=== PATIENT | female | born 1945 | race Caucasian/White ===

== ENCOUNTER → 2024-10-06 13:19 | Outpatient (REF) | payer MEDICARE, SELFPAY ==
[2024-10-06 14:17] LABS: % Basophils 0.7 % (0-2); % Immature Granulocytes 0.4 % (0-0.5); % Lymphocytes 31.7 % (20.5-51.1); % Monocytes 9.9 % (1.7-9.3); % Neutrophils 55.3 % (42.2-75.2); Absolute Eosinophils 0.1 10^3/uL (0-0.7); Absolute Lymphocytes 1.8 10^3/uL (1.2-3.4); Absolute Monocytes 0.6 10^3/uL (0.1-0.6); Absolute Neutrophils 3.1 10^3/uL (1.4-6.5); Hematocrit 36.8 % (37.0-47.0); Hemoglobin 12.2 g/dL (12.0-16.0); Mean Corp Hgb Conc. 33.2 g/dL (33.0-37.0); Mean Corpuscular Volume 93.4 fL (81.0-99.0); Mean Platelet Volume 9.8 fL (7.4-10.4); Nucleated Red Blood Cells % 0 %; Platelet Count 242 10^3/uL (130-400); Red Blood Cell Count 3.94 10^6/uL (4.20-5.40); Red Cell Dist. Width 12.8 % (11.5-14.5); White Blood Cell Count 5.6 10^3/uL (4.8-10.8)
[2024-10-06 14:41] LABS: ALT (SGPT) 29 U/L (0-35); AST (SGOT) 29 U/L (14-36); Albumin 4.8 g/dl (3.5-5.0); Alkaline Phosphatase 48 U/L (38-126); Blood Urea Nitrogen 9 mg/dl (7-17); Calcium 9.9 mg/dl (8.4-10.2); Carbon Dioxide 33 mmol/L (22-30); Chloride 92 mmol/L (98-107); Glucose 97 mg/dl (70-99); Magnesium 1.8 mg/dl (1.6-2.3); Phosphorus 4.6 mg/dl (2.5-4.5); Potassium 4.3 mmol/L (3.5-5.1); Sodium 131 mmol/L (135-145); Total Bilirubin 0.5 mg/dl (0.2-1.3); eGFR > 60.00
[2024-10-06 14:49] LABS: IgA 70 mg/dl (70-400)
[2024-10-06 14:51] LABS: Intact PTH 16.6 pg/ml (13.6-85.8)
[2024-10-06 14:57] LABS: Total Thyroxine 8.32 ug/dl (5.5-11.0); Vitamin D, 25-OH*** 83.8 ng/mL (30-80)
[2024-10-06 15:11] LABS: TSH 2.42 uIU/ml (0.47-4.68)
[2024-10-07 15:48] LABS: tTG IgA Antibody 3.8 EU/ml (0-19); tTG IgG Antibody 8.7 EU/ml (0-19)
== END ==
LOC: RAD 13:19
PROVIDERS: ATTENDING PHYSICIAN Student in an Organized Health Care Education/Training Program
DX: M81.0 Age-related osteoporosis without current pathological fracture (principal); R29.890 Loss of height; Z86.73 Personal history of transient ischemic attack (TIA), and cerebral infarction without residual deficits; Z87.311 Personal history of (healed) other pathological fracture; R94.6 Abnormal results of thyroid function studies
CPT/HCPCS: 36415; 72040; 72072; 72110; 80053; 82306; 82784; 83516; 83735; 83970; 84100; 84155; 84165; 84436; 84443; 85025; 86231

== ENCOUNTER 2024-10-10 12:07 | Emergency (ER) | payer MEDICARE, SELFPAY ==
[2024-10-10 12:10] VITALS: BP 141/72
--- NOTE | 2024-10-10 12:57 | ED.MUSCINJ ---
HPI-Injury
General
Chief Complaint: Musculo-Skeletal Complaint
Source: patient and family (niece)
Exam Limitations: none
Time Seen by Provider: 10/10/24 12:55
Nursing documentation reviewed up to this point in time: agreed with
History of Present Illness-Injury
Initial Injury comments:
79yo female w h/o HLD, TIA on ASA, no other thinners, states she got up around midnight and faltered, catching herself with her right hand on a piece of furniture hyperextending the wrist and hand. By 3 a.m. it was swollen and sore and even more so
this a.m. Denies any other injury
Past History
Past History
ED Past Medical History: Hypercholesterolemia and Other (TIA)
ED Past Surgical History: Orthopedic
Social History
Tobacco: Non-smoker
Alcohol: None
Living: alone
Review of Systems
Review of Systems
Allergies reviewed?: Yes
All Other Systems: ROS reviewed and negative except as documented in HPI and ROS
Respiratory: Denies trouble breathing
Cardiac: Denies chest pain
ABD/GI: Denies abdominal pain or nausea
: Denies dysuria, frequency or difficulty voiding
Musculoskeletal: Reports other (pain swelling right wrist); Denies neck pain or back pain
Neurological: Denies dizzy, headache or weakness
Phy Exam
Physical Exam
Physical Exam:
GENERAL: No acute distress. A&Ox3.
CONSTITUTIONAL: Afebrile.
EYES: clear, conjunctivae normal
ENMT: moist mucus membranes,
RESPIRATORY: Regular respirations, nonlabored, lungs clear.
CARDIOVASCULAR: Regular rate and rhythm, no murmurs, no rubs.
GI: Soft, nontender
MUSCULOSKELETAL: Moves with ease. Well perfused.
SKIN: Warm, dry, pink
PSYCH: Normal mood and affect. Well kept, interactive and appropriate
NEUROLOGIC: Awake, alert and oriented. No focal neurological deficits
Injury Course
Orders/Labs/Results
Orders:
Orders
10/10/24 12:15
Wrist, Right 3 Views [CR Wrist - Right Min 3 Views] Urgent
Comment:
Reason For Exam: pain, swelling
10/10/24 13:21
[place] Wrist Right-Tx ONCE
MDM/Problems Addressed
MDM/Problems Addressed:
79yo female w h/o HLD, TIA on ASA, no other thinners, states she got up around midnight and faltered, catching herself with her right hand on a piece of furniture hyperextending the wrist and hand. By 3 a.m. it was swollen and sore and even more so
this a.m. Denies any other injury
IMPRESSION:
1. Transverse fracture of the distal right radial metaphysis, with likely intra-articular extension.
2. Likely minimally displaced fracture of the ulnar styloid process.
3. Trapezium and trapezoid are not well visualized, suggestive of a prior surgical resection.
*Critical Care Note
Total Time (30-74mins, 75-104mins- exclusive of procedures): Not Applicable
ED Attending Note
-
Portions of this chart may have been created with voice recognition software.� Occasional wrong word or��sound alike� substitutions may have occurred due to the inherent limitations of voice recognition software.
Discharge Plan
Departure
Patient Disposition: Home (Routine Discharge)
Date of Disposition: 10/10/24
Time of Disposition: 13:27
Patient with high blood pressure during this ER visit?: No
Condition: Good
Discharge Problem:
Fracture of right wrist
Instructions: Wrist Fracture (DC), Using Cold for Pain
Referrals:
Idris Rodríguez MD [Active] - Next open appointment
UNKNOWN - PT DOES,NOT KNOW [Family Provider] -
Activity Restrictions/Additional Instructions:
As we discussed, keep the splint on until further instructed by the orthopedic doctor. Call their office today and make an appointment for sometime next week.
Tylenol as needed for pain.
Interventions
Interventions:
*Risk Screen - Suicide Last Done: 10/10/24 12:10
*Nursing Disposition Last Done: 10/10/24 13:56
ED-Musculoskeletal Assessment Last Done: 10/10/24 13:54
Discharge Date and Time
Discharge Date/Time: 10/10/24 13:57
Print Language: CITIZEN [place]
== END 2024-10-10 13:57 | disposition home or self-care (01) ==
LOC: EMR 12:07
PROVIDERS: EMERGENCY PHYSICIAN Emergency Medicine
DX: S52.501A Unspecified fracture of the lower end of right radius, initial encounter for closed fracture (principal); X50.1XXA Overexertion from prolonged static or awkward postures, initial encounter; E78.00 Pure hypercholesterolemia, unspecified
CPT/HCPCS: 99283; 29125; 73110

== ENCOUNTER → 2024-11-27 16:46 | Outpatient (REF) | payer MEDICARE, SELFPAY ==
[2024-11-27 17:19] LABS: % Basophils 0.7 % (0-2); % Eosinophils 1.9 % (0-6); % Immature Granulocytes 0.2 % (0-0.5); % Lymphocytes 27.5 % (20.5-51.1); % Monocytes 9.5 % (1.7-9.3); % Neutrophils 60.2 % (42.2-75.2); Absolute Eosinophils 0.1 10^3/uL (0-0.7); Absolute Lymphocytes 1.6 10^3/uL (1.2-3.4); Absolute Monocytes 0.6 10^3/uL (0.1-0.6); Absolute Neutrophils 3.6 10^3/uL (1.4-6.5); Hematocrit 32.2 % (37.0-47.0); Hemoglobin 11.1 g/dL (12.0-16.0); Mean Corp Hgb Conc. 34.5 g/dL (33.0-37.0); Mean Corpuscular Hgb 31.3 pg (27.0-31.0); Mean Corpuscular Volume 90.7 fL (81.0-99.0); Mean Platelet Volume 9.5 fL (7.4-10.4); Nucleated Red Blood Cells % 0 %; Platelet Count 238 10^3/uL (130-400); Red Blood Cell Count 3.55 10^6/uL (4.20-5.40); Red Cell Dist. Width 13.2 % (11.5-14.5); White Blood Cell Count 5.9 10^3/uL (4.8-10.8)
[2024-11-27 17:34] LABS: Erythrocyte Sed Rate 10 mm/hour (0-20)
[2024-11-27 17:47] LABS: Calcium 9.5 mg/dl (8.4-10.2)
[2024-11-27 17:51] LABS: ALT (SGPT) 32 U/L (0-35); AST (SGOT) 29 U/L (14-36); Albumin 4.7 g/dl (3.5-5.0); Alkaline Phosphatase 62 U/L (38-126); Blood Urea Nitrogen 14 mg/dl (7-17); Calcium 9.8 mg/dl (8.4-10.2); Carbon Dioxide 30 mmol/L (22-30); Chloride 93 mmol/L (98-107); Glucose 97 mg/dl (70-99); Magnesium 1.7 mg/dl (1.6-2.3); Phosphorus 5.2 mg/dl (2.5-4.5); Potassium 4.5 mmol/L (3.5-5.1); Sodium 132 mmol/L (135-145); Total Protein 6.8 g/dl (6.3-8.2); eGFR > 60.00
[2024-11-27 17:53] LABS: C-Reactive Protein < 5.00 mg/L (0.0-10.00)
[2024-11-27 18:09] LABS: Vitamin D, 25-OH*** 71.8 ng/mL (30-80)
[2024-11-27 18:23] LABS: TSH Reflex To Free T4 2.71 uIU/ml (0.47-4.68)
[2024-11-29 09:43] LABS: Intact PTH 14.9 pg/ml (13.6-85.8)
== END ==
LOC: REG 16:46
PROVIDERS: ATTENDING PHYSICIAN Student in an Organized Health Care Education/Training Program; FAMILY PHYSICIAN Nurse Practitioner Primary Care
DX: M81.0 Age-related osteoporosis without current pathological fracture (principal); R29.890 Loss of height; S62.101S Fracture of unspecified carpal bone, right wrist, sequela; Z86.73 Personal history of transient ischemic attack (TIA), and cerebral infarction without residual deficits; Z87.311 Personal history of (healed) other pathological fracture; K52.9 Noninfective gastroenteritis and colitis, unspecified; I10 Essential (primary) hypertension
CPT/HCPCS: 36415; 80053; 82306; 82330; 83735; 83970; 84100; 84155; 84165; 84443; 85025; 85652; 86140

== ENCOUNTER → 2025-01-06 10:30 | Outpatient (REF) | payer MEDICARE, SELFPAY ==
[2025-01-06 11:56] LABS: Urine Albumin Negative (Neg - Trace); Urine Bilirubin Negative (Negative); Urine Character Clear (Clear); Urine Color Yellow; Urine Glucose Negative (Negative); Urine Ketone Negative (Negative); Urine Leukocyte 1+ (Negative); Urine Nitrite Negative (Negative); Urine Occult Blood 1+ (Negative); Urine Urobilinogen Negative (Neg - 1+)
[2025-01-06 12:11] LABS: Urine Bacteria Few (Negative)
[2025-01-06 12:12] LABS: Urine Red Blood Cell 16-20 /HPF (0-2)
[2025-01-06 12:18] LABS: Osmolality Urine 535 mOsm/kg (300-900)
[2025-01-06 12:21] LABS: Osmolality Serum 296 mOsm/kg (275-300)
[2025-01-06 12:33] LABS: Blood Urea Nitrogen 13 mg/dl (7-17); Carbon Dioxide 33 mmol/L (22-30); Chloride 99 mmol/L (98-107); Glucose 107 mg/dl (70-99); Iron 79 ug/dl (37-170); Sodium 142 mmol/L (135-145); eGFR > 60.00
[2025-01-06 12:39] LABS: Urine Sodium 96 mmol/L (30-90)
[2025-01-06 12:43] LABS: Percent Saturation 31 % (20-50); Total Iron Binding Capacity 252 ug/dl (265-497)
[2025-01-06 13:26] LABS: Folate > 20.0 ng/ml (2.76-20)
[2025-01-06 15:12] LABS: Vitamin B12 205 pg/ml (239-931)
[2025-01-08 04:42] LABS: IgA 80 mg/dl (70-400)
[2025-01-08 16:06] LABS: Endomysial IgA Antibody Titer <1:10 (<1:10)
[2025-01-08 18:38] LABS: tTG IgA Antibody <1.02 FLU (0.00-4.99)
== END ==
LOC: REG 10:30
PROVIDERS: ATTENDING PHYSICIAN Nurse Practitioner Primary Care; OTHER PHYSICIAN Student in an Organized Health Care Education/Training Program
DX: D64.9 Anemia, unspecified (principal); E87.1 Hypo-osmolality and hyponatremia; Z79.899 Other long term (current) drug therapy
CPT/HCPCS: 36415; 80048; 81003; 81015; 82607; 82728; 82746; 82784; 83516; 83540; 83550; 83930; 83935; 84300; 86231

== ENCOUNTER → 2025-04-01 13:33 | Outpatient (REF) | payer MEDICARE, SELFPAY ==
[2025-04-01 14:52] LABS: Urine Albumin 2+ (Neg - Trace); Urine Bilirubin Negative (Negative); Urine Character Slightly Cloudy (Clear); Urine Color Amber; Urine Glucose Negative (Negative); Urine Ketone Negative (Negative); Urine Leukocyte 1+ (Negative); Urine Nitrite Negative (Negative); Urine Occult Blood 1+ (Negative); Urine Specific Gravity 1.025 (<1.030); Urine Urobilinogen Negative (Neg - 1+)
[2025-04-01 14:58] LABS: Ionized Calcium 1.48 mMOL/L (1.15-1.33)
[2025-04-01 15:04] LABS: % Basophils 0.8 % (0-2); % Eosinophils 2.1 % (0-6); % Immature Granulocytes 0.2 % (0-0.5); % Lymphocytes 32.4 % (20.5-51.1); % Monocytes 10.2 % (1.7-9.3); % Neutrophils 54.3 % (42.2-75.2); Absolute Eosinophils 0.1 10^3/uL (0-0.7); Absolute Lymphocytes 1.6 10^3/uL (1.2-3.4); Absolute Monocytes 0.5 10^3/uL (0.1-0.6); Absolute Neutrophils 2.6 10^3/uL (1.4-6.5); Hematocrit 34.3 % (37.0-47.0); Mean Corpuscular Hgb 31.3 pg (27.0-31.0); Mean Corpuscular Volume 89.6 fL (81.0-99.0); Mean Platelet Volume 10.3 fL (7.4-10.4); Nucleated Red Blood Cells % 0 %; Platelet Count 245 10^3/uL (130-400); Red Blood Cell Count 3.83 10^6/uL (4.20-5.40); Red Cell Dist. Width 13.6 % (11.5-14.5); White Blood Cell Count 4.8 10^3/uL (4.8-10.8)
[2025-04-01 15:05] LABS: Urine Mucus Few; Urine Squamous Cell 0-2 /LPF (Few)
[2025-04-01 15:06] LABS: Urine Calcium Oxalate Crystals Present; Urine Hyaline Cast 0-2 /LPF (0-2); Urine White Cell 0-2 /HPF (0-5)
[2025-04-01 15:51] LABS: Blood Urea Nitrogen 14 mg/dl (7-17); Calcium 12.7 mg/dl (8.4-10.2); Carbon Dioxide 31 mmol/L (22-30); Chloride 97 mmol/L (98-107); Glucose 105 mg/dl (70-99); Potassium 3.8 mmol/L (3.5-5.1); Sodium 138 mmol/L (135-145); eGFR > 60.00
[2025-04-01 16:23] LABS: Intact PTH 3.9 pg/ml (13.6-85.8)
== END ==
LOC: REG 13:33
PROVIDERS: ATTENDING PHYSICIAN Nurse Practitioner Primary Care
DX: R82.90 Unspecified abnormal findings in urine (principal); R73.01 Impaired fasting glucose; E83.52 Hypercalcemia; R79.89 Other specified abnormal findings of blood chemistry
CPT/HCPCS: 36415; 80048; 81003; 81015; 82330; 83970; 85025

== ENCOUNTER → 2025-05-27 13:41 | Outpatient (REF) | payer MEDICARE, SELFPAY ==
[2025-05-27 17:19] LABS: Urine Character Cloudy (Clear)
[2025-05-27 17:38] LABS: Urine Squamous Cell 0-2 /LPF (Few)
[2025-05-27 17:39] LABS: Urine Red Blood Cell 0-2 /HPF (0-2)
== END ==
LOC: CLAB 13:41
PROVIDERS: ATTENDING PHYSICIAN Urology
DX: R31.29 Other microscopic hematuria (principal)
CPT/HCPCS: 81003; 81015; 87086; 88112

== ENCOUNTER → 2025-06-10 16:31 | Outpatient (REF) | payer MEDICARE, SELFPAY | LOC: RAD 16:31 | PROVIDERS: ATTENDING PHYSICIAN Urology; FAMILY PHYSICIAN Nurse Practitioner Primary Care | DX: R31.29 Other microscopic hematuria (principal) | CPT/HCPCS: 74178; Q9967 ==

== ENCOUNTER → 2025-07-20 10:34 | Outpatient (REF) | payer MEDICARE, SELFPAY ==
[2025-07-20 11:51] LABS: Hematocrit 33.4 % (37.0-47.0); Hemoglobin 11.5 g/dL (12.0-16.0); Mean Corp Hgb Conc. 34.4 g/dL (33.0-37.0); Mean Corpuscular Volume 94.4 fL (81.0-99.0); Nucleated Red Blood Cells % 0 %; Platelet Count 224 10^3/uL (130-400); Red Cell Dist. Width 13.9 % (11.5-14.5)
[2025-07-20 12:42] LABS: ALT (SGPT) 182 U/L (0-35); AST (SGOT) 142 U/L (14-36); Albumin 4.7 g/dl (3.5-5.0); Alkaline Phosphatase 319 U/L (38-126); Blood Urea Nitrogen 15 mg/dl (7-17); Calcium 9.7 mg/dl (8.4-10.2); Carbon Dioxide 31 mmol/L (22-30); Chloride 100 mmol/L (98-107); Glucose 101 mg/dl (70-99); HDL Cholesterol 71 mg/dl; LDH 220 U/L (120-246); LDL Cholesterol, Calculated 61 mg/dl; Potassium 4.2 mmol/L (3.5-5.1); Sodium 138 mmol/L (135-145); Total Protein 7.2 g/dl (6.3-8.2); Very Low Density Lipoprotein 21 mg/dl (0-30); eGFR > 60.00
[2025-07-20 12:49] LABS: C-Reactive Protein < 5.00 mg/L (0.0-10.00)
[2025-07-20 13:10] LABS: Vitamin D, 25-OH*** 38.7 ng/mL (30-80)
[2025-07-20 13:43] LABS: Vitamin B12 828 pg/ml (239-931)
[2025-07-23 00:21] LABS: Albumin 4.20 g/dL (3.75-5.01); Free Kappa Light Chains,Quant 18.97 mg/L (3.30-19.40); Free Lambda Light Chains,Quant 14.66 mg/L (5.71-26.30); Immunofixation Electrophoresis IFE Done; Kappa/Lambda Fr Light Ratio 1.29 (0.26-1.65); Total Protein-Electrophoresis 6.8 g/dL (6.3-8.2)
== END ==
LOC: REG 10:34
PROVIDERS: ATTENDING PHYSICIAN Nurse Practitioner Primary Care
DX: R53.1 Weakness (principal); D64.9 Anemia, unspecified; E53.8 Deficiency of other specified B group vitamins; E83.52 Hypercalcemia; R63.4 Abnormal weight loss; E78.2 Mixed hyperlipidemia
CPT/HCPCS: 36415; 80053; 80061; 82306; 82330; 82570; 82607; 82784; 83521; 83615; 83970; 84155; 84156; 84165; 84443; 85025; 85652; 86140; 86334

== ENCOUNTER → 2025-07-22 15:07 | Outpatient (REF) | payer MEDICARE, SELFPAY | LOC: RAD 15:07 | PROVIDERS: ATTENDING PHYSICIAN Nurse Practitioner Primary Care | DX: R63.4 Abnormal weight loss (principal); Z87.19 Personal history of other diseases of the digestive system | CPT/HCPCS: 71260; 74177; Q9967 ==

== ENCOUNTER → 2025-08-05 09:38 | Outpatient (REF) | payer MEDICARE, SELFPAY ==
[2025-08-05 13:03] LABS: Vitamin D, 25-OH*** 35.6 ng/mL (30-80)
== END ==
LOC: RAD 09:38
PROVIDERS: ATTENDING PHYSICIAN Student in an Organized Health Care Education/Training Program; FAMILY PHYSICIAN Nurse Practitioner Primary Care
DX: D64.9 Anemia, unspecified (principal); R74.01 Elevation of levels of liver transaminase levels; E67.3 Hypervitaminosis D; M81.0 Age-related osteoporosis without current pathological fracture; R29.890 Loss of height; S62.101S Fracture of unspecified carpal bone, right wrist, sequela; Z86.73 Personal history of transient ischemic attack (TIA), and cerebral infarction without residual deficits; Z87.311 Personal history of (healed) other pathological fracture
CPT/HCPCS: 36415; 76700; 82306

== ENCOUNTER 2025-08-18 06:23 | Day surgery (SDC) | payer MEDICARE, SELFPAY | END 2025-08-18 12:00 | disposition home or self-care (01) | LOC: GI 06:23 | PROVIDERS: ATTENDING PHYSICIAN Student in an Organized Health Care Education/Training Program | DX: R93.3 Abnormal findings on diagnostic imaging of other parts of digestive tract (principal); R63.4 Abnormal weight loss; K57.30 Diverticulosis of large intestine without perforation or abscess without bleeding; K64.8 Other hemorrhoids; R13.10 Dysphagia, unspecified; Q39.9 Congenital malformation of esophagus, unspecified; K31.89 Other diseases of stomach and duodenum; K29.50 Unspecified chronic gastritis without bleeding; B96.81 Helicobacter pylori [H. pylori] as the cause of diseases classified elsewhere; K31.A11 Gastric intestinal metaplasia without dysplasia, involving the antrum | CPT/HCPCS: 43239; 45378; 88305; 88342 ==

== ENCOUNTER → 2025-08-24 09:13 | Outpatient (REF) | payer MEDICARE, SELFPAY ==
[2025-08-24 10:24] LABS: Hematocrit 33.7 % (37.0-47.0); Hemoglobin 11.1 g/dL (12.0-16.0); Mean Corp Hgb Conc. 32.9 g/dL (33.0-37.0); Mean Corpuscular Volume 95.7 fL (81.0-99.0); Nucleated Red Blood Cells % 0 %; Platelet Count 281 10^3/uL (130-400); Red Cell Dist. Width 14.8 % (11.5-14.5)
[2025-08-24 10:33] LABS: Urine Character Clear (Clear)
[2025-08-24 11:02] LABS: Urine Squamous Cell 21-25 /LPF (Few)
[2025-08-24 11:03] LABS: Urine Red Blood Cell 0-2 /HPF (0-2)
[2025-08-24 11:16] LABS: ALT (SGPT) 92 U/L (0-35); AST (SGOT) 65 U/L (14-36); Albumin 4.2 g/dl (3.5-5.0); Alkaline Phosphatase 170 U/L (38-126); Blood Urea Nitrogen 9 mg/dl (7-17); Calcium 9.6 mg/dl (8.4-10.2); Carbon Dioxide 33 mmol/L (22-30); Chloride 97 mmol/L (98-107); Glucose 81 mg/dl (70-99); Potassium 4.6 mmol/L (3.5-5.1); Sodium 135 mmol/L (135-145); Total Protein 6.9 g/dl (6.3-8.2); eGFR > 60.00
[2025-08-24 11:51] LABS: Ferritin 480.0 ng/ml (11.1-264.0)
[2025-08-24 12:22] LABS: Folate 15.1 ng/ml (2.76-20)
[2025-08-24 15:38] LABS: Lyme Antibody Screen, EIA Negative (Negative)
== END ==
LOC: RAD 09:13
PROVIDERS: ATTENDING PHYSICIAN Nurse Practitioner Primary Care
DX: R13.10 Dysphagia, unspecified (principal); R63.4 Abnormal weight loss; R74.01 Elevation of levels of liver transaminase levels; D64.9 Anemia, unspecified; R31.29 Other microscopic hematuria; D52.0 Dietary folate deficiency anemia
CPT/HCPCS: 36415; 80053; 81003; 81015; 82570; 82728; 82746; 84156; 85025; 86480; 86618

== ENCOUNTER → 2025-09-15 09:04 | Outpatient (REF) | payer MEDICARE, SELFPAY | LOC: RAD 09:04 | PROVIDERS: ATTENDING PHYSICIAN Nurse Practitioner Primary Care | DX: R13.10 Dysphagia, unspecified (principal) | CPT/HCPCS: 74221 ==

== ENCOUNTER → 2025-10-09 10:49 | Outpatient (REF) | payer MEDICARE, SELFPAY | LOC: RAD 10:49 | PROVIDERS: ATTENDING PHYSICIAN Student in an Organized Health Care Education/Training Program; FAMILY PHYSICIAN Nurse Practitioner Primary Care | DX: M81.0 Age-related osteoporosis without current pathological fracture (principal); Z86.73 Personal history of transient ischemic attack (TIA), and cerebral infarction without residual deficits; Z87.311 Personal history of (healed) other pathological fracture | CPT/HCPCS: 77080 ==